=== PATIENT | male | born 1935 | race Caucasian/White ===

== ENCOUNTER 2020-09-23 21:36 | Inpatient (IN) ==
[2020-09-23 22:21] LABS: ABS Eosinophils 0.2 10^3/ul (0-0.6); ABS Monocytes 0.4 10^3/ul (0-0.8); ABS Neutrophils 2.5 10^3/ul (1.5-7.7); Eosinophil % 4.7 %; Hematocrit 32 % (42-52); Lymphocyte % 24.2 %; Mean Corpuscular HGB Conc 34 g/dL (31-36); Mean Corpuscular Hemoglobin 33 pg (27-31); Mean Corpuscular Volume 97 fL (80-94); Nucleated Red Blood Cells % 0.1; Platelet Count 112 10^3/uL (150-450); Red Cell Distribution Width 13 % (10-15); White Blood Count 4.1 10^3/uL (3.5-10.8)
[2020-09-23 22:38] LABS: ALT 11 U/L (7-52); AST 17 U/L (13-39); Albumin/Globulin Ratio 1.7 (1-3); Alkaline Phosphatase 76 U/L (34-104); Anion Gap 9 mmol/L (2-11); BUN/Creatinine Ratio 20.7 (8-20); Blood Urea Nitrogen 63 mg/dL (6-24); CO2 Carbon Dioxide 27 mmol/L (22-32); Calcium 9.6 mg/dL (8.6-10.3); Chloride 105 mmol/L (101-111); EGFR African American 23.7 (>60); EGFR Non-African American 19.6 (>60); Globulin 2.3 g/dL (2-4); Glucose 177 mg/dL (70-100); Potassium 3.9 mmol/L (3.5-5.0); Sodium 141 mmol/L (135-145); Total Protein 6.3 g/dL (6.4-8.9)
[2020-09-23 22:52] LABS: Troponin I 0.05 ng/mL (<0.03)
[2020-09-23] MEDS ORDERED: Heparin 5000 UNITS/ML 1 mL VIAL IV SCH (23:45)
[2020-09-23] MEDS ORDERED: nitroGLYCERIN DRIP 25,000 MCG/250 ML BTL IV ONE (23:51)
[2020-09-24] MEDS: Heparin DRIP 25,000 UNITS BAG 25,000 UNITS/500 ML BAG IV SCH (00:44)
[2020-09-24 02:10] LABS: Blood Urea Nitrogen 62 mg/dL (6-24); EGFR African American 24.3 (>60); EGFR Non-African American 20.1 (>60)
[2020-09-24 02:18] LABS: Troponin I 0.12 ng/mL (<0.03)
[2020-09-24 02:43] LABS: Cholesterol 162 mg/dL; LDL Cholesterol 111 mg/dL; Triglycerides 89 mg/dL
[2020-09-24 06:22] LABS: ABS Eosinophils 0.2 10^3/ul (0-0.6); ABS Lymphocytes 1.3 10^3/ul (1.0-4.8); ABS Monocytes 0.4 10^3/ul (0-0.8); ABS Neutrophils 2.1 10^3/ul (1.5-7.7); Hematocrit 31 % (42-52); Hemoglobin 10.6 g/dL (14.0-18.0); Lymphocyte % 32.7 %; Mean Corpuscular HGB Conc 35 g/dL (31-36); Mean Corpuscular Hemoglobin 33 pg (27-31); Mean Corpuscular Volume 96 fL (80-94); Mean Platelet Volume 9.9 fL (7.4-10.4); Platelet Count 109 10^3/uL (150-450); Red Cell Distribution Width 13 % (10-15); White Blood Count 4.1 10^3/uL (3.5-10.8)
[2020-09-24 06:48] LABS: Troponin I 0.38 ng/mL (<0.03)
[2020-09-24] MEDS ORDERED: Perflutren Lipid Microsphere 3 ML VIAL ONE (11:24)
[2020-09-24 17:54] LABS: Troponin I 0.28 ng/mL (<0.03)
[2020-09-24] MEDS: NS 0.9% 1000 ml BAG 1,000 ML IV SCH (19:09)
[2020-09-24 20:04] LABS: Troponin I 0.21 ng/mL (<0.03)
[2020-09-25 04:38] LABS: ABS Eosinophils 0.2 10^3/ul (0-0.6); ABS Lymphocytes 1.4 10^3/ul (1.0-4.8); ABS Monocytes 0.4 10^3/ul (0-0.8); ABS Neutrophils 1.9 10^3/ul (1.5-7.7); Hematocrit 31 % (42-52); Hemoglobin 10.4 g/dL (14.0-18.0); Lymphocyte % 36.2 %; Mean Corpuscular HGB Conc 34 g/dL (31-36); Mean Corpuscular Hemoglobin 33 pg (27-31); Mean Corpuscular Volume 96 fL (80-94); Mean Platelet Volume 10.6 fL (7.4-10.4); Platelet Count 108 10^3/uL (150-450); Red Blood Count 3.19 10^6 /uL (4.18-5.48); Red Cell Distribution Width 13 % (10-15)
[2020-09-25 04:50] LABS: EGFR African American 25.9 (>60); EGFR Non-African American 21.4 (>60)
[2020-09-25] MEDS: NS 0.9% 1000 ml BAG 1,000 ML IV SCH (07:25)
[2020-09-25] MEDS: Heparin DRIP 25,000 UNITS BAG 25,000 UNITS/500 ML BAG IV SCH (07:30)
[2020-09-25] MEDS: Enoxaparin 80 MG/0.8 ML SYR SUBCUT SCH (12:07)
[2020-09-25 14:14] LABS: Vitamin D Total 25(OH) 49.6 ng/mL (20-50)
[2020-09-25] MEDS ORDERED: Polyethylene Glycol 3350 17 GM PACKET ONE (20:04)
[2020-09-25] MEDS: Polyethylene Glycol 3350 17 GM PACKET PO PRN (20:29)
[2020-09-26 06:41] LABS: BUN/Creatinine Ratio 18.6 (8-20); Calcium 9.3 mg/dL (8.6-10.3); EGFR African American 26.1 (>60); EGFR Non-African American 21.6 (>60); Potassium 3.9 mmol/L (3.5-5.0)
[2020-09-26] MEDS: Enoxaparin 80 MG/0.8 ML SYR SUBCUT SCH (13:42)
[2020-09-26] MEDS: Polyethylene Glycol 3350 17 GM PACKET PO PRN (13:47)
[2020-09-26] MEDS ORDERED: Enoxaparin 40 MG/0.4 ML SYR SUBCUT SCH (21:00)
[2020-09-27 06:58] LABS: ABS Eosinophils 0.1 10^3/ul (0-0.6); ABS Lymphocytes 1.2 10^3/ul (1.0-4.8); ABS Monocytes 0.5 10^3/ul (0-0.8); ABS Neutrophils 1.6 10^3/ul (1.5-7.7); Hematocrit 31 % (42-52); Hemoglobin 10.3 g/dL (14.0-18.0); Lymphocyte % 34.2 %; Mean Corpuscular HGB Conc 34 g/dL (31-36); Mean Corpuscular Hemoglobin 33 pg (27-31); Mean Corpuscular Volume 97 fL (80-94); Mean Platelet Volume 10.4 fL (7.4-10.4); Nucleated Red Blood Cells % 0.3; Platelet Count 100 10^3/uL (150-450); Red Blood Count 3.14 10^6 /uL (4.18-5.48); Red Cell Distribution Width 13 % (10-15); White Blood Count 3.4 10^3/uL (3.5-10.8)
[2020-09-27 07:00] LABS: Albumin 3.5 g/dL (3.2-5.2); Albumin/Globulin Ratio 1.5 (1-3); Calcium 9.2 mg/dL (8.6-10.3); EGFR African American 26.3 (>60); EGFR Non-African American 21.8 (>60); Globulin 2.4 g/dL (2-4); Magnesium 2.1 mg/dL (1.9-2.7); Potassium 4.1 mmol/L (3.5-5.0); Total Bilirubin 0.7 mg/dL (0.2-1.0); Total Protein 5.9 g/dL (6.4-8.9)
[2020-09-27] MEDS: Heparin 5000 UNITS/ML 1 mL VIAL SUBCUT SCH ×2 (14:31→21:01)
[2020-09-28 06:58] LABS: ABS Eosinophils 0.1 10^3/ul (0-0.6); ABS Monocytes 0.4 10^3/ul (0-0.8); ABS Neutrophils 1.8 10^3/ul (1.5-7.7); Hematocrit 30 % (42-52); Hemoglobin 10.1 g/dL (14.0-18.0); Lymphocyte % 29.7 %; Mean Corpuscular HGB Conc 34 g/dL (31-36); Mean Corpuscular Hemoglobin 33 pg (27-31); Mean Corpuscular Volume 97 fL (80-94); Mean Platelet Volume 10.1 fL (7.4-10.4); Nucleated Red Blood Cells % 0.1; Platelet Count 102 10^3/uL (150-450); Red Blood Count 3.06 10^6 /uL (4.18-5.48); Red Cell Distribution Width 13 % (10-15); White Blood Count 3.3 10^3/uL (3.5-10.8)
[2020-09-28 07:15] LABS: BUN/Creatinine Ratio 17.8 (8-20); Calcium 9.1 mg/dL (8.6-10.3); EGFR African American 26.7 (>60); Potassium 3.9 mmol/L (3.5-5.0)
[2020-09-28 07:22] LABS: Troponin I 0.1 ng/mL (<0.03)
[2020-09-28 09:08] VITALS: BP 122/61
[2020-09-28] MEDS ORDERED: Isosorbide Mononit ER 30mg TAB PO SCH (11:00)
== END 2020-09-28 13:40 | disposition home or self-care (01) | DRG 280 ==
LOC: MED 21:36 → ED 21:36 → EDHOLD 09-24 01:35 → INTOOBSV 09-24 01:35 → MED 09-24 18:05
PROVIDERS: ADMIT Internal Medicine; ATTEND Internal Medicine